=== PATIENT | male | born 1960 | race Hispanic/Latino ===

== ENCOUNTER 2016-11-26 11:21 | Emergency (ER) | payer MEDICAID, OTHER ==
[2016-11-26 11:44] VITALS: BMI 51.6
[2016-11-26] MEDS ORDERED: Erythromycin 0.5% Ophth Oint 1 APPLIC/3.5 G OU ONE (11:58)
--- NOTE | 2016-11-26 12:00 | ED PDOC ---
Arrival/HPI - General Chief Complaint: Weakness/Neurological Deficit Time Seen by Provider: 11/26/16 11:47 Historian: Patient - History of Present Illness Narrative History of Present Illness (Text): 11/26/16 11:45 A 56 year old male presents to the emergency department complaining of a right sided facial droop since yesterday morning. Patient denies any weakness, numbness, or any other complaints at this time. PMD: Dr. Huseyin Fraire Time/Duration: 24 hours Symptom Onset: Sudden Symptom Course: Unchanged Quality: Other Activities at Onset: Rest Context: Home Past Medical History - Provider Review Nursing Documentation Reviewed: Yes - Infectious Disease Hx of Infectious Diseases: None - Cardiac Hx Hypertension: Yes - HEENT Hx Cataracts: Yes (Removed OU) - Endocrine/Metabolic Hx Diabetes Mellitus Type 2: Yes - Psychiatric Hx Substance Use: No Family/Social History - Physician Review Nursing Documentation Reviewed: Yes Family/Social History: Unknown Family HX Smoking Status: Never Smoked Hx Alcohol Use: No Hx Substance Use: No Allergies/Home Meds Allergies/Adverse Reactions: Allergies No Known Allergies Allergy (Verified 11/26/16 11:47) Home Medications: Home Meds Medication Instructions Recorded Confirmed Aspirin [Aspirin Chewable] 81 mg PO DAILY 11/26/16 11/26/16 Glimepiride [amaRYL] 4 mg PO DAILY 11/26/16 11/26/16 Lisinopril/Hydrochlorothiazide 1 tab PO DAILY 11/26/16 11/26/16 [Lisinopril-Hctz 10-12.5 mg Tab] MetFORMIN 1,000 mg PO BID 11/26/16 11/26/16 Physical Exam - Physical Exam Narrative Physical Exam (Text): - Review of Systems Constitutional: Normal. absent: Fatigue, Weight Change, Fevers Eyes: Normal ENT: Normal Respiratory: Normal absent: SOB, Cough, Sputum Cardiovascular: Normal absent: Chest pain, Palpitations, Syncope Gastrointestinal: Normal absent: Abdominal pain, Diarrhea, Nausea, Vomiting Genitourinary: Normal. absent: Dysuria, Frequency, Hematuria Musculoskeletal: Normal. absent: Arthralgias, Back Pain, Neck Pain Skin: Normal Neurological: Right sided facial droop. absent: Focal Weakness Endocrine: Normal Hemo/Lymphatic: Normal Psychiatric: Normal - Physical exam Patient appears age appropriate, speaking full sentences without difficulty - Systems Exam Head: Present: Atraumatic, Normocephalic Pupils: Present: PERRL Extraocular Muscles: Present: EOMI Conjunctiva: Present: Normal Mouth: Present: Moist Mucous Membranes Neck: Present: Normal Range of Motion. No: MIDLINE TENDERNESS, Paraspinal Tenderness Respiratory/Chest: Present: Clear to Auscultation, Good Air Exchange. No: Respiratory Distress, Accessory Muscle Use, Tachypneic Cardiovascular: Present: Regular Rate and Rhythm, Normal S1, S2, Peripheral Pulses Present. No: Murmurs Abdomen: Present: Normal Bowel Sounds, No: Tenderness, Peritoneal Signs, Rebound, Guarding, Distention Back: Present: Normal Inspection. No: Midline Tenderness, Paraspinal Tenderness Upper Extremity: Present: Normal Inspection. No: Cyanosis, Edema Lower Extremity: Present: Normal Inspection. No: Edema Neurological: Present: GCS=15, Speech Normal, Right sided facial droop involving the forehead. No other focal neurological deficits. Skin: Present: Warm, Dry, Normal Color. No: Rashes Lymphatic: Present: OX3, NI, NC Psychiatric: Present: Alert, Oriented x 3, Normal Insight, Normal Concentration Vital Signs Reviewed: Yes Vital Signs Temp Pulse Resp BP Pulse Ox 11/26/16 11:43 98.1 F 83 17 125/85 97 Temperature: Afebrile Blood Pressure: Normal Pulse: Regular Respiratory Rate: Normal Appearance: Positive for: Well-Appearing, Non-Toxic, Comfortable Pain Distress: None Mental Status: Positive for: Alert and Oriented X 3 Finger Stick Blood Glucose: 93 Medical Decision Making ED Course and Treatment: 11/26/16 11:45 Impression: A 56 year old male with a right sided facial droop, involving the forehead Differential Diagnosis include but are not limited to: Taylor's Palsy Plan: -- Head CT -- Eryhromycin -- Reassess and disposition Progress Notes: 11/26/16 12:[address]: Creator : Babs Lundy MD IMPRESSION: Nonspecific white matter changes. 11/26/16 13:06 pt instructed to f/u outpatient with an optholmologist and a neurologist for further w/u pt provided with erythomycin ointment tube and instructions in the ER pt states he feels comfortable being dc'd home Pt states he understands to return to the ER right away for new or worsening symptoms or for inability to f/u with PMD or specialist as instructed. Patient states that he fully agrees with and understands discharge instructions. States that he agrees with the plan and disposition. Verbalized and repeated discharge instructions and plan. I have given the patient opportunity to ask any additional questions. - Lab Interpretations Lab Results: Lab Results 11/26/16 11:41: POC Glucose (mg/dL) 93 I have reviewed the lab results: Yes - RAD Interpretation Radiology Orders: 11/26/16 11:57 HEAD W/O CONTRAST [CT] Stat - Medication Orders Current Medication Orders: Discontinued Medications Erythromycin (Erythromycin) 1 applic OU ONCE ONE Stop: 11/26/16 11:59 Last Admin: 11/26/16 12:15 Dose: 1 applic - Scribe Statement The provider has reviewed the documentation as recorded by the Scribe Joe Limon Provider Scribe Attestation: All medical record entries made by the Scribe were at my direction and personally dictated by me. I have reviewed the chart and agree that the record accurately reflects my personal performance of the history, physical exam, medical decision making, and the department course for this patient. I have also personally directed, reviewed, and agree with the discharge instructions and disposition. Disposition/Present on Arrival - Present on Arrival Any Indicators Present on Arrival: No History of DVT/PE: No History of Uncontrolled Diabetes: No Urinary Catheter: No History of Decub. Ulcer: No History Surgical Site Infection Following: None - Disposition Have Diagnosis and Disposition been Completed?: Yes Diagnosis: Taylor's palsy Disposition: HOME/ ROUTINE Disposition Time: 13:08 Patient Plan: Discharge Condition: GOOD Discharge Instructions (ExitCare): Taylor Palsy (ED) Additional Instructions: PLEASE RETURN TO THE EMERGENCY DEPARTMENT FOR NEW OR WORSENING SYMPTOMS. RETURN RIGHT AWAY IF YOU CANNOT FOLLOW UP WITH YOUR PRIMARY CARE DOCTOR, CLINIC, OR SPECIALIST IN 1-2 DAYS. Please obtain [id number] artificial tears from the pharmacy and use as instructed by the pharmacist into the right eye Prescriptions: Acyclovir [Zovirax] 800 mg PO 5XD #35 tablet predniSONE [predniSONE Tab] 60 mg PO DAILY #21 tab Referrals: PCP,NO [Primary Care Provider] - Follow up with primary Arsenio Arnold MD [Staff Provider] - Follow up with primary Rei Smith MD [Staff Provider] - Follow up with primary
--- NOTE | 2016-11-26 12:36 | CT ---
PROCEDURE: CT HEAD WITHOUT CONTRAST. HISTORY: R. facial droop COMPARISON: None available. TECHNIQUE: Axial computed tomography images were obtained through the head/brain without intravenous contrast. Radiation dose: Total exam DLP = 722.27 mGy-cm. This CT exam was performed using one or more of the following dose reduction techniques: Automated exposure control, adjustment of the mA and/or kV according to patient size, and/or use of iterative reconstruction technique. FINDINGS: HEMORRHAGE: No intracranial hemorrhage. BRAIN: No mass effect or edema. Intracranial atherosclerotic calcifications. Mild scattered periventricular and subcortical white matter hypodensities, which are nonspecific, but often seen with chronic microvascular ischemic disease. Please note that MRI with diffusion imaging is more sensitive in the detection of acute ischemic event. VENTRICLES: No hydrocephalus. CALVARIUM: Unremarkable. PARANASAL SINUSES: Unremarkable as visualized. No significant inflammatory changes. MASTOID AIR CELLS: Unremarkable as visualized. No inflammatory changes. OTHER FINDINGS: None. IMPRESSION: Nonspecific white matter changes.
[2016-11-26 13:31] VITALS: BP 142/78; PULSE 85; RESP 17; TEMP 98; O2SAT 96
--- NOTE | 2016-11-27 02:09 | CARD ---
APPROVED REPORT EKG Measurement Heart [id number] <Conclusion> Sinus rhythm with premature atrial complexes in a pattern of bigeminy Otherwise normal ECG
== END 2016-11-26 13:39 | disposition home or self-care (01) ==
LOC: MERGE 11:21 → ED 11:21
DX: G51.0 Bell's palsy (principal)